=== PATIENT | female | born 1960 | race Caucasian/White ===

== ENCOUNTER → 2016-10-28 09:25 | Day surgery (SDC) | payer OTHER ==
[~2016-10-28 09:25] MED LIST: Acetaminophen TAB* 325 MG PO PRN; Buffered Lidocaine 1% SYR 3ML* 3 ML/SYR SYRINGE INTRADERM ONE; Bupivacaine 0.5% SDV PF* 30 ML VIAL ONE; Dexamethasone IV* 4 MG/ML 1 ML (4 MG) ONE; DiMENhydriNATE IV* 50 MG/ML VIAL IV PUSH PRN; Famotidine IV* 10 MG/ML 2 ML (20 mg) ONE; HYDROcodone/ACETAMIN 5-325 MG* 1 TAB PO PRN; Ketorolac INJ* 30 MG/ML 1 ML VIAL ONE; Lidocaine 2% PF * 5 ML VIAL ONE; Lidocaine 2% PF* 10 ML AMP ONE; Midazolam* 1 MG/ML 2 ML VIAL (2 MG) ONE; Ondansetron INJ* 2 MG/ML VIAL IV PRN; PROCHLORPERAZINE INJ 5 MG/ML 2 ML VIAL IV PRN; Propofol* 10 MG/ML 20 ML BTL IV PUSH ONE; ceFAZolin 2 GM PREMIX (*) 2 GM/50 ML BAG IVPB ONE; diPHENhydraMINE IV* 50 MG/ML 1 ml VIAL (BENADRYL) ONE; fentaNYL* 50 MCG/ML 2 ML VIAL (100 MCG VIAL) ONE
[2016-10-28 13:18] VITALS: BP 128/93
--- NOTE | 2016-10-28 17:24 | RAD ---
CPT II Codes: 6045F INDICATION: Left ankle hardware removal. Fluoroscopic services provided for referring physician. 17 seconds of fluoroscopy time was used. Single spot image demonstrates placement of instrument in the calcaneal screw. IMPRESSION: Fluoroscopic services provided for referring physician.
--- NOTE | 2016-10-29 11:13 | OP ---
DATE OF OPERATION: 10/28/16 - [facility] DATE OF : 62 ATTENDING SURGEON: Pedro Peterson MD PLASTIC DOLLS MOLD FILLER: JOHANA He. ANESTHESIOLOGIST: Dr. Chatman ANESTHESIA: MAC PRE-OP DIAGNOSIS: Painful hardware, left heel. POST-OP DIAGNOSIS: Painful hardware, left heel. PRIMARY PROCEDURE: Removal of heel screw, left calcaneus. DESCRIPTION OF PROCEDURE: The patient was taken to the operating room where local anesthetic was infused around the heel. I was able to localize the end of the screw using a pointed guide pin. We then drove the screwdriver over the guide pin, engaging the head of the screw and then it was able to be removed. I irrigated the heel wound, closing with interrupted 2-0 Surgipro and a compression dressing applied. [id number] #: [id number] MTDD
== END | disposition home or self-care (01) ==
LOC: OR 09:25
PROVIDERS: ATTEND Orthopaedic Surgery
DX: T84.84XA Pain due to internal orthopedic prosthetic devices, implants and grafts, initial encounter (principal); Y83.1 Surgical operation with implant of artificial internal device as the cause of abnormal reaction of the patient, or of later complication, without mention of misadventure at the time of the procedure; S92.002D Unspecified fracture of left calcaneus, subsequent encounter for fracture with routine healing; X58.XXXD Exposure to other specified factors, subsequent encounter
CPT/HCPCS: 76000; 88300; J0690; J1100; J1200; J1885; J2001; J2250; J2704; J3010

== ENCOUNTER 2018-03-30 06:59 | Day surgery (SDC) | payer OTHER ==
[~2018-03-30 06:59] MED LIST changes: +Acetaminophen IV 1GM/100ML * 1,000 MG/100 ML VIAL IVPB ONE; -Acetaminophen TAB* 325 MG PO PRN; +Buffered Lidocaine 0.9% SYRIN* 5 ML/SYR SYRINGE INTRADERM ONE; -Buffered Lidocaine 1% SYR 3ML* 3 ML/SYR SYRINGE INTRADERM ONE; -Bupivacaine 0.5% SDV PF* 30 ML VIAL ONE; -Dexamethasone IV* 4 MG/ML 1 ML (4 MG) ONE; +Dexamethasone TAB* 4 MG PO ONE; +Famotidine IV* 10 MG/ML 2 ML (20 mg) IV ONE; -Famotidine IV* 10 MG/ML 2 ML (20 mg) ONE; -HYDROcodone/ACETAMIN 5-325 MG* 1 TAB PO PRN; -Ketorolac INJ* 30 MG/ML 1 ML VIAL ONE; -Lidocaine 2% PF * 5 ML VIAL ONE; -Lidocaine 2% PF* 10 ML AMP ONE; -Midazolam* 1 MG/ML 2 ML VIAL (2 MG) ONE; +Naloxone* 0.4 MG/ML 1 ML VIAL IV PRN; -Ondansetron INJ* 2 MG/ML VIAL IV PRN; +Ondansetron INJ* 2 MG/ML VIAL ONE; -Propofol* 10 MG/ML 20 ML BTL IV PUSH ONE; +Scopolamine 1.5 mg* PATCH TRANSDERM ONE; -ceFAZolin 2 GM PREMIX (*) 2 GM/50 ML BAG IVPB ONE; -diPHENhydraMINE IV* 50 MG/ML 1 ml VIAL (BENADRYL) ONE; -fentaNYL* 50 MCG/ML 2 ML VIAL (100 MCG VIAL) ONE
[2018-03-30] MEDS ORDERED: Ondansetron ODT TAB* 4 MG ONE (07:28)
[2018-03-30] MEDS ORDERED: Scopolamine 1.5 mg* PATCH ONE (07:28)
[2018-03-30] MEDS ORDERED: ceFAZolin 2 GM PREMIX (*) 2 GM/50 ML BAG IVPB ONE (07:28)
[2018-03-30] MEDS ORDERED: Famotidine IV* 10 MG/ML 2 ML (20 mg) ONE (07:28)
[2018-03-30] MEDS ORDERED: Dexamethasone TAB* 4 MG ONE (07:28)
[2018-03-30] MEDS ORDERED: Acetaminophen IV 1GM/100ML * 100 ML ONE (07:30)
[2018-03-30] MEDS ORDERED: Midazolam* 1 MG/ML 5 ML VIAL (5 MG) ONE (07:49)
[2018-03-30] MEDS ORDERED: KETAMINE HCL* 50 MG/ML 10 ML VIAL ONE (07:49)
[2018-03-30] MEDS ORDERED: fentaNYL* 50 MCG/ML 2 ML VIAL (100 MCG VIAL) ONE ×3 (07:49→11:44)
[2018-03-30] MEDS ORDERED: Lidocaine 2% PF* 10 ML AMP ONE (08:17)
[2018-03-30] MEDS ORDERED: Lidocaine 2% PF * 5 ML VIAL ONE (09:06)
[2018-03-30] MEDS ORDERED: Chloroprocaine 2%* 20 ML VIAL ONE (09:06)
[2018-03-30] MEDS ORDERED: Propofol* 10 MG/ML 20 ML BTL IV PUSH ONE (09:06)
[2018-03-30] MEDS ORDERED: Ketorolac INJ* 30 MG/ML 1 ML VIAL ONE (09:52)
[2018-03-30] MEDS ORDERED: Morphine INJ* 2 MG/ML 1 ML SYRINGE (TWO MG - NEW SYRINGE VERSION) ONE ×2 (11:04→11:44)
[2018-03-30] MEDS: fentaNYL* 50 MCG/ML 2 ML VIAL (100 MCG VIAL) IV PRN ×6 (11:05→12:12)
[2018-03-30] MEDS: Morphine INJ* 2 MG/ML 1 ML SYRINGE (TWO MG - NEW SYRINGE VERSION) IV PRN ×2 (11:07→11:45)
[2018-03-30] MEDS ORDERED: Bupivacaine 0.25% SDV* 30 ML ONE (12:00)
[2018-03-30 12:53] VITALS: BP 147/88
--- NOTE | 2018-03-31 01:06 | OP ---
DATE OF OPERATION: 03/30/18 - [facility] DATE OF : 62 ATTENDING SURGEON: Pedro Peterson MD ASISTANT: Dory Dotson PA-C PRE-OP DIAGNOSIS: POST-OP DIAGNOSIS: OPERATIVE PROCEDURE: Left subtalar fusion, tibial bone graft, lateral calcaneal ostectomy, and a cotton osteotomy. DESCRIPTION OF PROCEDURE: The patient was taken to the operating room where a lateral longitudinal incision was made over the subtalar area. The peroneal tendons were mobilized to allow us to do a decompressive ostectomy at the lateral calcaneus in the subfibular area. Laminar roof panel hanger was used to open the subtalar joint. Wire was prepared for arthrodesis using a power bur. Some cancellous bone was harvested from the Gerdy's tubercle, left knee, 3 to 4 cm oblique incision. We split the periosteum over the tubercle and opened the bone with a power bur. A curette was used to harvest cancellous graft, which was combined with a small amount of allograft and placed in the subtalar joint. We did impact the allograft into the defect to the proximal tibia closing the periosteum with 2-0 Vicryl and bony for the skin. The subtalar fusion was then fixed with a 6.7 mm cannulated screw from the heel up to the center of the head of the talus. Good compression was obtained. We closed the lateral wound with some 2-0 Vicryl. Bony for the skin and Prolene for the heel wound. We then made a longitudinal incision over the dorsum of the first metatarsal. An osteotomy was made 2 cm distal to the joint and we opened this dorsally placing a wedge of iliac allograft into the area of the defect. We packed an additional amount of autologous bone around the graft. This was fixed dorsally with the Synthes mid foot plate using locking and nonlocking screws. X-ray intraoperatively showed satisfactory position of the hardware. The graft was hard to visualize on the image intensifier given the spongy nature of the bone, but the defect was well filled clinically. We then irrigated, closed dorsally with Vicryl and nylon suture and a compression dressing, plaster splint. [id number]/[facility] #: [id number] [facility]
[2018-04-02] MEDS ORDERED: Scopolamine PATCH Remove* 1 NOTE MISC PATCH OFF ONE (06:00)
== END 2018-03-30 13:44 | disposition home or self-care (01) ==
LOC: OR 06:59
PROVIDERS: ATTEND Orthopaedic Surgery
DX: M76.822 Posterior tibial tendinitis, left leg (principal); Z88.5 Allergy status to narcotic agent; G89.18 Other acute postprocedural pain
CPT/HCPCS: C1713; A9270-GY; C1776; C9359; J0690; J1885; J2001; J2250; J2270; J2400; J2704; J3010; J8540

== ENCOUNTER 2018-12-07 09:22 | Day surgery (SDC) | payer OTHER ==
[~2018-12-07 09:22] MED LIST changes: -Acetaminophen IV 1GM/100ML * 1,000 MG/100 ML VIAL IVPB ONE; -Buffered Lidocaine 0.9% SYRIN* 5 ML/SYR SYRINGE INTRADERM ONE; +Buffered Lidocaine 1% SYRIN* 1 ML/SYRINGE INTRADERM ONE; -Dexamethasone TAB* 4 MG PO ONE; -DiMENhydriNATE IV* 50 MG/ML VIAL IV PUSH PRN; +Lactated Ringers 1000 ML Bag* 1,000 ML IV SCH; -Naloxone* 0.4 MG/ML 1 ML VIAL IV PRN; -Ondansetron INJ* 2 MG/ML VIAL ONE; -PROCHLORPERAZINE INJ 5 MG/ML 2 ML VIAL IV PRN; -Scopolamine 1.5 mg* PATCH TRANSDERM ONE
[2018-12-07] MEDS ORDERED: Famotidine IV* 10 MG/ML 2 ML (20 mg) ONE (10:05)
[2018-12-07] MEDS ORDERED: ceFAZolin 2 GM PREMIX in ORs 2 GM/50 ML BAG IVPB ONE (10:05)
[2018-12-07] MEDS ORDERED: Midazolam* 1 MG/ML 5 ML VIAL (5 MG) ONE (11:33)
[2018-12-07] MEDS ORDERED: fentaNYL* 50 MCG/ML 2 ML VIAL (100 MCG VIAL) ONE (11:33)
[2018-12-07] MEDS ORDERED: Lidocaine 2% PF* 10 ML AMP ONE (12:21)
[2018-12-07] MEDS ORDERED: Bupivacaine 0.5%* 50 ML VIAL ONE (12:21)
[2018-12-07] MEDS ORDERED: Ketorolac INJ* 30 MG/ML 1 ML VIAL ONE (12:55)
[2018-12-07] MEDS ORDERED: Ondansetron INJ* 2 MG/ML VIAL ONE (12:55)
[2018-12-07] MEDS ORDERED: Lidocaine 2% PF * 5 ML VIAL ONE (12:55)
[2018-12-07] MEDS ORDERED: Propofol* 10 MG/ML 20 ML BTL ONE ×2 (12:55→13:22)
[2018-12-07] MEDS ORDERED: Acetaminophen TAB* 325 MG PO PRN (13:35)
[2018-12-07] MEDS ORDERED: DiMENhydriNATE IV* 50 MG/ML VIAL IV PUSH PRN (13:35)
[2018-12-07] MEDS ORDERED: Acetaminophen TAB* 325 MG ONE (13:39)
[2018-12-07 16:02] VITALS: BP 134/93
--- NOTE | 2018-12-07 21:03 | OP ---
DATE OF OPERATION: 12/07/18 - [facility] DATE OF : 62 ATTENDING SURGEON: Dr. Pedro Peterson. PROGRESSIVE ASSEMBLER AND FITTER: Dory Dotson PA-C. PRE-OP DIAGNOSIS: Painful hardware, left midfoot and heel. POST-OP DIAGNOSIS: Painful hardware, left midfoot and heel. OPERATIVE PROCEDURE: Removal of hardware, left midfoot and left heel. DESCRIPTION OF PROCEDURE: The patient was taken to the operating room where ankle Esmarch was applied. We applied some 2% lidocaine local block. We made a longitudinal incision over the midfoot. Tracing over the dorsum of the first metatarsal where the small star screwdriver was used to remove the plate. Through the heel, a 2-cm incision was made and then we cannulated the head of the heel screw with the guidepin and used the Arthrex screwdriver to remove the screw. Washer was removed with a rongeur. The heel wound was closed with interrupted 2-0 Prolene sutures. The midfoot wound was closed with 3-0 Monocryl sutures and 4-0 nylon. A compression dressing was applied. [id number]/[facility] #: [id number] [facility]
== END 2018-12-07 15:00 | disposition home or self-care (01) ==
LOC: OR 09:22
PROVIDERS: ATTEND Orthopaedic Surgery
DX: T84.84XA Pain due to internal orthopedic prosthetic devices, implants and grafts, initial encounter (principal); M79.672 Pain in left foot; Y83.1 Surgical operation with implant of artificial internal device as the cause of abnormal reaction of the patient, or of later complication, without mention of misadventure at the time of the procedure; G47.33 Obstructive sleep apnea (adult) (pediatric)
CPT/HCPCS: 88300; A9270-GY; J0690; J1885; J2001; J2250; J2405; J2704; J3010; J3490